=== PATIENT | male | born 1950 | race Caucasian/White ===

== ENCOUNTER → 2021-02-08 | Outpatient (CLI) | payer OTHER, MEDICARE | LOC: LAB 13:32 | DX: Z01.812 Encounter for preprocedural laboratory examination (principal); Z86.79 Personal history of other diseases of the circulatory system | CPT/HCPCS: 36415; 82565; 84520 ==

== ENCOUNTER → 2021-02-28 | Outpatient (CLI) | payer OTHER, MEDICARE | LOC: CT 10:30 | DX: Z01.818 Encounter for other preprocedural examination (principal); I67.1 Cerebral aneurysm, nonruptured | CPT/HCPCS: 70496; Q9967 ==